=== PATIENT | female | born 1995 | race Caucasian/White ===

== ENCOUNTER 2022-04-25 09:56 | Emergency (ER) | payer BC, SELFPAY ==
[2022-04-25 09:57] VITALS: BP 130/77; PULSE 72; RESP 16; TEMP 36.6; O2SAT 99; BMI 34.3
--- NOTE | 2022-04-25 10:12 | CT_ITS ---
STUDY: CT BRAIN WITHOUT CONTRAST REASON FOR EXAM: Female, 26 years old. Trauma, head injury yesterday, quinteros, nausea RADIATION DOSAGE (If Supplied By Facility): CTDIvol = ( 44.99 ) mGy, DLP = ( 745.49 ) mGycm TECHNIQUE: Transaxial CT imaging of the brain was performed without administration of intravenous contrast material. Individualized dose optimization techniques were used for this CT. COMPARISON: No relevant priors. FINDINGS: Normal soft tissue structures. Normal calvarium. Normal size ventricles and extra-axial spaces for the patient''s age. Normal white matter tracts of the cerebral hemispheres. Normal basal ganglia and thalami. Normal brainstem. Normal cerebellum. There is no intracranial hemorrhage. There are no findings of an acute ischemic infarction. Normal visualized paranasal sinuses. CT/Brain/Head without Contrast IMPRESSION: Normal unenhanced CT scan of the brain. Electronically Signed: Alxe Valdes MD at 10:34 EDT ,
[2022-04-25] MEDS: Ondansetron ODT 4 MG Tablet 8 MG PO (10:15)
--- NOTE | 2022-04-25 10:15 | EDS_ITS ---
HPI History of Present Illness Chief Complaint: Head Injury Informant: patient Onset/Context/Timing Onset: Yesterday Mechanism/Context: Blunt Injury Quality of Pain: - (sore/achy) Location: top of head Current Severity: Mild Maximum Severity: Moderate Worsened by: palpation Relieved by: leaving alone Associated Symptoms Associated Symptoms: Negative for Parasthesias, Weakness, Loss of consciousness and Amnesia Narrative Narrative: Yesterday patient was at home and accidentally stood up into a cabinetry door, hitting the top of her head on it. No loss of conscious or a mnesia, just some pain locally when it happened without any wounds or bleeding. Last night she started feeling tired, then woke up this morning she has been feeling foggy, trouble focusing mentally, nausea, headache. No vomiting, vision changes, focal neurologic deficits, dizziness, confusion. She is concerned about the injury. PFSH PFSH Home Medications ondansetron 8 mg PO Q8H PRN PRN #12 tab 04/25/22 [Rx Last Taken Unknown] Allergy/AdvReac Type Severity Reaction Status Date / Time No Known Allergies Allergy Verified 04/25/22 09:59 Social History Smoking Status: Unknown if ever smoked ROS ROS ED Constitutional Constitutional ED: Reports as per HPI, headache(s) and malaise; Denies chills or fever(s) Eyes Eyes: Denies change in vision or diplopia ENT ENT ED: Denies rhinorrhea or sore throat Cardiovascular Cardiovascular: Denies chest pain or palpitations Respiratory/Chest Respiratory/Chest: Denies cough or dyspnea Gastrointestinal Gastrointestinal: Reports nausea; Denies abdominal pain, diarrhea or vomiting Genitourinary Genitourinary ED: Denies dysuria or hematuria Musculoskeletal Musculoskeletal: Denies back pain or neck pain Integumentary Denies abscess or rash Neurologic Neurologic: Reports as per HPI and headache(s); Denies paresthesias or weakness Psychiatric Psychiatric: Denies anxiety or suicidal thoughts EXAM Physical Exam Const Vital Signs: 04/25/22 09:57 04/25/22 10:06 Temperature 97.9 F Temperature Source Temporal Pulse Rate 72 Respiratory Rate 16 Respiratory Effort Normal Non-Labored Respiratory Pattern Normal Blood Pressure 130/77 H Blood Pressure Mean 94 Pulse Ox 99 Oxygen Delivery Method Room Air Positive well nourished and well developed General Appearance ED: well developed and NAD HEENT Reports EAC's normal, TM's normal bilaterally and moist mucous membranes HEENT Narrative: No signs of trauma on top of her head where she is mildly tender; no crepitance or depression normocephalic and atraumatic Eyes PERRL and EOMs intact bilaterally Neck full ROM and supple Resp normal respiratory effort and clear to auscultation bilaterally Cardio regular rate, regular rhythm and no murmurs GI non-tender and non-distended Auscultation: normoactive bowel sounds Palpation: soft Back/Spine no CVA tenderness General Back: other FROM Extremity normal to inspection General Extremety ED: Negative for edema, pulses abnormal or tenderness General Extremity: Negative for edema or pulses abnormal Neuro oriented x3, CN's II-XII intact bilaterally, no sensory deficits noted and gait normal Marcus Coma Scale: document GCS findings Spontaneous Obeys Commands Oriented 15 Sensorium / Orientation: awake and alert Motor Exam: strength 5/5 throughout Skin no rashes or lesions noted and no wounds MDM MDM MDM Narrative Medical decision making narrative: Patient meets Willard head CT trauma criteria for observation and does not require imaging to rule out intracranial hemorrhage. However, patient pleads that she does not come to the hospital often and knows her body and knows something is wrong and requests head CT anyway which was performed and negative for anything acute. Likely mild concussion, given the relatively low force injury, suspect symptoms were last couple days and self-resolved. Supportive care is advised, she was given Zofran here and a prescription for more in case she needs it, discussed following up if she has symptoms for longer than 1 week. Radiography Diagnostic Testing: Clinical Impression(s) from Imaging Studies Brain CT 04/25/22 10:12 IMPRESSION: Normal unenhanced CT scan of the brain. Electronically Signed: Alex Valdes MD at 10:34 EDT , Discharge Plan Triage Chief Complaint: Head Injury ED Provider: Jayro Christine Dx/Rx/DC Orders Clinical Impression: Concussion without loss of consciousness, initial encounter Instructions: ED Head Injury (Adult) Prescriptions: New ondansetron [ondansetron] 4 MG tablet 8 mg PO Q8H PRN PRN (Reason: Nausea) Qty: 12 RF: 0 Stand Alone Forms: ED Work / School Excuse Primary Care Provider: Care Physician,No Primary Referrals: Doctor,Your [STAFF PHYSICIAN] - 1 Week if not improving Activity Restrictions/Additional Instructions: Tylenol/ibuprofen as needed for headache/pain. Prescription nausea medication as needed. Disposition Disposition: Home, Self Care
[2022-04-25] MEDS: Ibuprofen 600 MG Tablet PO (11:17)
== END 2022-04-25 11:20 | disposition home or self-care (01) ==
PROVIDERS: Emergency Provider Emergency Medicine; Visit Provider Emergency Medicine
DX: S06.0X0A Concussion without loss of consciousness, initial encounter (principal); W22.09XA Striking against other stationary object, initial encounter; Y92.009 Unspecified place in unspecified non-institutional (private) residence as the place of occurrence of the external cause
CPT/HCPCS: 70450; 99283

== ENCOUNTER 2023-10-13 14:55 | Outpatient (CLI) | payer BC, SELFPAY ==
[2023-10-13 15:09] VITALS: BP 127/80; PULSE 127
[2023-10-13 15:10] VITALS: PULSE 106; PULSE 122; TEMP 36.9; O2SAT 95; O2SAT 96
[2023-10-13 15:14] VITALS: BMI 38.7
[2023-10-13 15:59] LABS: Color, Urine Yellow (Yellow); Glucose, Dipstick Normal (Normal); Ketone-Dipstick Negative (Negative); Leukocyte Esterase-Dipstick 25 /ul (Negative); Nitrite-Dipstick Negative (Negative); Occult Blood-Urine 250 /ul (Negative); Protein-Dipstick 15 mg/dl (Negative); Specific Gravity, Urine 1.015 (1.002-1.030); Urine Bilirubin Dipstick Negative (Negative); Urine Clarity Clear (Clear); Urine Urobilinogen Normal (Normal)
--- NOTE | 2023-10-14 09:47 | OB.TRI.NOTE ---
HPI - General General Date of Service: 10/13/23 HPI Narrative VIC STRATTON, is a 27 F @ 37 weeks who presents c/o cramping and bloody show , r/o labor PFSH PFS Home Medications aspirin 81 mg tablet,delayed release (Adult Aspirin Regimen) 81 mg PO DAILY 10/13/23 [History Last Taken 10/12/23] vits no.130-ferrous fum 27 mg iron-folic acid 800 mcg tablet ( Vitamin) 1 tab PO DAILY 10/13/23 [History Last Taken 10/13/23] Allergy/AdvReac Type Severity Reaction Status Date / Time bee venom protein (honey bee) Allergy Mild Swelling Verified 10/13/23 15:16 Social History Smoking Status: Unknown if ever smoked Physical Exam Narrative VE: 1cm per nursing NST FHR Rate Baby A Baseline: 155 Variability:: Moderate Accelerations:: 15 x 15 Decelerations:: None NST Reactive:: Yes FHR Category:: Category I Uterine Activity:: irregular Assessment & Plan (1) False labor: PLAN: Plan @ 37 weeks- false labor 1) well being established 2) dc home
== END 2023-10-13 16:30 | disposition home or self-care (01) ==
LOC: OBT 14:58 → WP 14:59
PROVIDERS: Visit Provider Obstetrics & Gynecology
DX: O47.1 False labor at or after 37 completed weeks of gestation (principal); Z3A.37 37 weeks gestation of pregnancy
CPT/HCPCS: 59025; 59050; 81002; 99221; G0378

== ENCOUNTER 2023-10-24 11:25 | Outpatient (CLI) | payer BC, SELFPAY ==
[2023-10-24 11:46] VITALS: BP 125/77; PULSE 108; TEMP 36.6; O2SAT 98
[2023-10-24 11:49] VITALS: PULSE 107; O2SAT 97
[2023-10-24 12:11] VITALS: BMI 38.9
[2023-10-24 12:22] LABS: Absolute Lymphocyte Count 1.78 X10^3/uL (0.83-4.51); Absolute Neutrophil Count 7.7 X10^3/uL (2.0-7.7); Basophil# 0.09 X10^3/uL; Basophil% 0.8 % (0-1); Eosinophil# 0.08 X10^3/uL; Eosinophils% 0.7 % (0-5); Hematocrit 35.2 % (37-47); Lymphocyte # 1.78 X10^3/ul (0.83-4.51); Lymphocyte % 16.2 % (19-41); Mean Corp Hgb Conc 31.3 g/dL (32-36); Mean Corpuscular Hgb 26.4 pg (27.0-32.0); Mean Corpuscular Volume 84.6 fL (81-99); Mean Platelet Vol. 11.2 fl (6.2-12.0); Monocyte% 8.2 % (0-10); NRBC Flagged by Analyzer 0 % (0-5); Neutrophil # 7.66 X10^3/uL (2.7-7.7); Neutrophil % 69.6 % (47-70); Platelet Count 220 K/mm3 (150-450); RBC Distribution Width CV 13.7 % (11.6-14.6); RBC Distribution Width SD 42.1 fl (35.1-43.9); Red Blood Count 4.16 M/mm3 (4.2-5.4)
[2023-10-24 12:34] LABS: ALB/GLOB Ratio 0.6 RATIO (0.9-2.4); AST(SGOT) 12 U/L (15-37); Alanine Aminotransfer ALT/SGPT 11 U/L (13-56); Albumin, Serum 2.5 g/dL (3.2-5.0); Alkaline Phosphatase 127 U/L (45-117); Anion Gap 4 (5-15); BUN 5 mg/dL (7-18); BUN/Creat Ratio 10.2 RATIO (10-20); Calcium,Total 8.6 mg/dL (8.5-10.1); Chloride 108 mmol/L (98-107); Creatinine, Serum 0.49 mg/dL (0.55-1.02); EST Glomerular Filtration Rate 158 mL/min (>60); Est Glom Filt Rate - Afr Amer 191 mL/min (>60); Estimated Creatinine Clearance 146.29 ml/min; Globulin 4.3 g/dL (2.2-4.2); Glucose 119 mg/dL (74-106); Potassium 3.7 mmol/L (3.5-5.1); Protein, Total 6.8 g/dL (6.4-8.2); Sodium Level 136 mmol/L (136-145)
--- NOTE | 2023-10-24 12:52 | OB.TRI.NOTE ---
HPI - General HPI Narrative VIC STRATTON, is a 27 F who presents from office for tachycardia while on NST. Patient also reporting itching skin on backs of hands. No rash noted. Maternal Data Information HAYLEY Calculator Estimated Delivery Date Method Current WG Current Estimate 11/03/23 Manual 38w 4d PFSH PFSH Home Medications aspirin 81 mg tablet,delayed release (Adult Aspirin Regimen) 81 mg PO DAILY 10/13/23 [History Last Taken 10/21/23] vits no.130-ferrous fum 27 mg iron-folic acid 800 mcg tablet ( Vitamin) 1 tab PO DAILY 10/13/23 [History Last Taken 10/21/23] Allergy/AdvReac Type Severity Reaction Status Date / Time bee venom protein (honey bee) Allergy Mild Swelling Verified 10/24/23 12:10 Social History Smoking Status: Unknown if ever smoked ROS Eyes Eyes: Denies blurry vision Cardiovascular Cardiovascular: Reports none; Denies chest pain at rest, chest pain with activity or dizziness Respiratory/Chest Respiratory/Chest: Denies cough or dyspnea Gastrointestinal Gastrointestinal: Reports none and other; Denies diarrhea or vomiting Genitourinary Genitourinary: Denies dysuria Musculoskeletal Musculoskeletal: Reports none Integumentary Integumentary: Reports none; Denies rash Neurologic Neurologic: Denies dizziness, headache(s) or other visual disturbances Psychiatric Psychiatric: Reports none Physical Exam Const alert and no apparent distress General Appearance: cooperative Orientation / Consciousness: awake Exam Limitations: no limitations HEENT normocephalic Eyes General Eye: normal appearance of both eyes Neck full ROM Chest inspection of chest normal Resp normal respiratory effort and normal air movement Effort and Inspection: symmetric chest movement Auscultation: clear to auscultation bilaterally Cardio regular rate GI soft to palpation, non-tender and non-distended Inspection: and other Back/Spine normal ROM Extremity full ROM, normal capillary refill and no calf tenderness Skin no rashes or lesions noted Neuro oriented x3 and CN's II-XII intact bilaterally Psych mental status grossly normal NST FHR Rate Baby A Baseline: 140 Variability:: Moderate Accelerations:: 15 x 15 Decelerations:: None NST Reactive:: Yes FHR Category:: Category I Uterine Activity:: Irregular contractions Assessment & Plan (1) 38 weeks gestation of : (2) Antepartum tachycardia affecting care of mother: (3) Pruritus of both hands: PLAN: Plan CBC & CMP normal Bile salts sent- do not suspect cholestasis due to itching on back of hands and has dry skin FHT no longer tachycardic NST reactive, Cat. 1 tracing D/C home with follow up in office
[2023-10-26 04:07] LABS: Bile Acids 3.3 umol/L (0.0-10.0)
== END 2023-10-24 13:15 | disposition home or self-care (01) ==
LOC: WPOUT 11:32 → WP 11:32
PROVIDERS: Referring Provider Advanced Practice Midwife; Visit Provider Advanced Practice Midwife
DX: O36.8330 Maternal care for abnormalities of the fetal heart rate or rhythm, third trimester, not applicable or unspecified (principal); Z3A.38 38 weeks gestation of pregnancy
CPT/HCPCS: 36415; 59025; 59050; 80053; 82239; 85025; 99221; G0378

== ENCOUNTER 2023-10-30 07:05 | Inpatient (IN) | payer BC, SELFPAY ==
[2023-10-30] VITALS (69 sets, daily range): BP systolic 95–161; BP diastolic 55–86; PULSE 74–113; RESP 15; TEMP 35.8–37.2; O2SAT 89–100; BMI 39.3
[2023-10-30] MEDS: Lactated Ringers 1,000 ML 50 ML IV (07:45)
[2023-10-30] MEDS: Oxytocin 15 Units/NS 250ml 15 UNITS/250 ML IV.SOLN 2 UNITS IV (07:59)
[2023-10-30] MEDS: LACTATED RINGERS 500 ML 999 ML IV (08:44)
--- NOTE | 2023-10-30 08:52 | HP.PCM.OB_ITS ---
HPI - General General Date of Admission: 10/30/23 HPI Narrative VIC STRATTON, is a 27 F who presents for elective induction of labor. with HAYLEY 11/03/23 with complicated by obesity, prepregnancy BMI 35. Maternal Data Information HAYLEY Calculator Estimated Delivery Date Method Current WG Current Estimate 11/03/23 Manual 39w 3d PFSH PFSH Medical History (Updated 10/30/23 @ 08:57 by Lucinda Delgadillo CNM) History of blood transfusion Home Medications aspirin 81 mg tablet,delayed release (Adult Aspirin Regimen) 81 mg PO DAILY 10/13/23 [History Last Taken 10/21/23] vits no.130-ferrous fum 27 mg iron-folic acid 800 mcg tablet ( Vitamin) 1 tab PO DAILY 10/13/23 [History Last Taken 10/21/23] Allergy/AdvReac Type Severity Reaction Status Date / Time bee venom protein (honey bee) Allergy Mild Swelling Verified 10/30/23 07:35 Surgical History (Updated 10/30/23 @ 08:21 by Mars Angeles) History of surgery History of surgery Social History Smoking Status: Never smoker History Elective abortions Hx Para 1 Spontaneous abortions Hx # Term Pregnancies Ectopic pregnancies Hx # Pregnancies Multiple births # of living children ROS Constitutional Constitutional: Reports systems reviewed and no addt'l complaints, except as documented; Denies headache(s) Eyes Eyes: Denies acute decrease in peripheral vision, blurry vision or change in vision ENT HEENT: Reports systems reviewed and no addt'l complaints, except as documented Cardiovascular Cardiovascular: Denies chest pain or dizziness Respiratory/Chest Respiratory/Chest: Denies cough, dyspnea, dyspnea on exertion, shortness of breath at rest or shortness of breath with exertion Gastrointestinal Gastrointestinal: Denies abdominal pain, diarrhea, nausea or vomiting Genitourinary Genitourinary: Denies abdominal discomfort Musculoskeletal Musculoskeletal: Denies limited range of motion Integumentary Integumentary: Reports systems reviewed and no addt'l complaints, except as documented Neurologic Neurologic: Reports systems reviewed and no addt'l complaints, except as documented Psychiatric Psychiatric: Reports systems reviewed and no addt'l complaints, except as documented Endocrine Endocrinology: Reports systems reviewed and no addt'l complaints, except as documented Hematologic/Lymphatic Hematologic/Lymphatic: Reports systems reviewed and no addt'l complaints, except as documented Allergic/Immunologic Allergic/Immunologic: Reports systems reviewed and no addt'l complaints, except as documented Vital Signs Vital Signs Vital Signs: 10/30/23 07:28 10/30/23 07:28 10/30/23 07:29 Temperature 97.9 F Pulse Rate 113 H Blood Pressure 125/79 H BP Systolic 125 BP Diastolic 79 10/30/23 08:41 10/30/23 08:41 10/30/23 08:42 Temperature 98.1 F Pulse Rate 96 Blood Pressure 135/86 H BP Systolic 135 BP Diastolic 86 Weight Weight: 229 lb 0.964 oz Body Mass Index (BMI) 39.3 Physical Exam Const alert and oriented x3 General Appearance: cooperative Orientation / Consciousness: awake, oriented to person, oriented to place and oriented to time Exam Limitations: no limitations HEENT normocephalic Head and Scalp: normal to inspection, normocephalic and atraumatic Face and Sinus: normal facial exam Eyes General Eye: normal appearance of both eyes Neck full ROM Chest Chest: symmetrical chest wall rise Resp normal respiratory effort and normal air movement Auscultation: clear to auscultation bilaterally Cardio regular rate, regular rhythm, S1 normal heart sound, S2 normal heart sound, no murmurs, no rub, no gallops and no clicks GI normal to inspection, nondistended, normoactive bowel sounds and non-tender appearance of the vagina normal Narrative: AROM for moderate amount of clear fluid Bladder / Kidney Exam: no CVA tenderness Manual OB Exam: estimated gestational size appropriate, presentation cephalic, dilated 4cm, effaced 50% and station -1 Back/Spine normal ROM Extremity normal to inspection and full ROM Skin no rashes or lesions noted Neuro oriented x3, CN's II-XII intact bilaterally and moves all extremities Sensorium / Orientation: awake, alert and oriented to person Motor Exam: clonus absent Deep Tendon Reflexes: Rt Patellar (L4): 2+ and Lt Patellar (L4): 2+ Labs Labs Labs: Hct 35.2 % (37-47) L Hgb 11.0 g/dL (12.0-15.0) L HIV negative RPR negative HBsAG negative HepC negative GBS negative GC/CT negative 1hr GCT abnormal, 3hr GCT with one elevted level Rubella Immune O positive Assessment & Plan (1) 39 weeks gestation of : (2) Encounter for elective induction of labor: (3) Obesity affecting : PLAN: Plan 1) Admit to labor and delivery 2) Continuous EFM 3) GBS negative 4) Routine labs 5) Epidural for pain management upon request 6) AROM and pitocin for IOL 7) [facility] physician, notified of patient status and of above assessment and plan.
[2023-10-30 09:15] LABS: Absolute Lymphocyte Count 1.79 X10^3/uL (0.83-4.51); Absolute Neutrophil Count 7.9 X10^3/uL (2.0-7.7); Basophil# 0.11 X10^3/uL; Eosinophil# 0.09 X10^3/uL; Eosinophils% 0.8 % (0-5); Hematocrit 34.7 % (37-47); Hemoglobin 10.8 g/dL (12.0-15.0); Lymphocyte # 1.79 X10^3/ul (0.83-4.51); Lymphocyte % 16.2 % (19-41); Mean Corp Hgb Conc 31.1 g/dL (32-36); Mean Corpuscular Hgb 26.3 pg (27.0-32.0); Mean Corpuscular Volume 84.4 fL (81-99); Mean Platelet Vol. 11.3 fl (6.2-12.0); Monocyte# 0.75 X10^3/uL; Monocyte% 6.8 % (0-10); NRBC Flagged by Analyzer 0 % (0-5); Neutrophil # 7.89 X10^3/uL (2.7-7.7); Neutrophil % 71.4 % (47-70); Platelet Count 230 K/mm3 (150-450); RBC Distribution Width CV 13.7 % (11.6-14.6); Red Blood Count 4.11 M/mm3 (4.2-5.4); White Blood Count 11.1 K/mm3 (4.4-11.0)
[2023-10-30 09:52] LABS: Syphilis Antibodies Non-reactive
[2023-10-30] MEDS: fentaNYL-bupivacaine (epidural) 100 ML BAG EPIDURAL (10:06)
[2023-10-30] MEDS: Lactated Ringers 1,000 ML 200 ML IV (12:18)
[2023-10-30] MEDS: Oxytocin 15 Units/NS 250ml 15 UNITS/250 ML IV.SOLN 83 UNITS IV (16:00)
--- NOTE | 2023-10-30 16:26 | EX.PCM.OBRPT ---
Assessment & Plan (1) Vaginal delivery: (2) Second degree perineal laceration: (3) Lactating mother: Maternal Data Information HAYLEY Calculator Estimated Delivery Date Method Current WG Current Estimate 11/03/23 Manual 39w 3d Vaginal Delivery Operative Information Date of Procedure: 10/30/23 Pre-Operative Diagnosis: Elective Induction of Labor Post-Operative Diagnosis: , second degree perineal laceration Surgery / Procedure Performed: Spontaneous Vaginal Delivery Type of Anesthesia: Epidural Estimated Blood Loss: 350 ml Time of Delivery: 15:27 Findings Description of Procedure: Progressed to complete with urge to push. Epidural for pain management. of viable male over second degree perineal laceration. APGARS 8,9 respectively. head delivered with CAN x1, delivered through, body immediately forthcoming. Placed on maternal abdomen, strong cry. Mouth and nares suctioned for secretions. Pitocin started for active 3rd stage management. Cord doubly clamped and cut by FOB after pulsations ceased, delayed cord clamping. Placenta delivered intact via [place], 3 vessel cord intact. Perineum inspected and revealed 2nd degree perineal laceration. Repaired with 3.0 vicryl rapide and epidural. Fundus firm and hemostasis achieved. EBL 350ml . Mom and baby stable, planning to breastfeed. Family bonding well. notified of delivery and above assessment and findings. Presentation: Vertex Amniotic Membrane Rupture Type: Artificial Amniotic Fluid Description: Clear Placental Delivery Description: Spontaneous Placenta Disposition: [facility] Cord Vessel Description: 3 Vessels Cord Entanglement: Around neck x 1, loose Nuchal Cord Compression: Without compression Infant A Gender: Male (1 minute): 8 (5 minute): 9 Delayed Cord Clamping: Yes Post Vaginal Delivery Medications Given After Delivery: IV Pitocin Episiotomy Description: None Laceration: Perineal Extension/lac and 2nd degree Complication Complications: None
[2023-10-31 03:20] VITALS: BP 110/70; PULSE 96; RESP 15; TEMP 36.6; O2SAT 96
[2023-10-31] MEDS: Acetaminophen 500 MG Tablet 1000 MG PO (06:33)
[2023-10-31 06:40] LABS: Absolute Lymphocyte Count 1.97 X10^3/uL (0.83-4.51); Absolute Neutrophil Count 10.3 X10^3/uL (2.0-7.7); Basophil# 0.11 X10^3/uL; Basophil% 0.8 % (0-1); Eosinophil# 0.09 X10^3/uL; Eosinophils% 0.6 % (0-5); Hematocrit 35.1 % (37-47); Hemoglobin 10.9 g/dL (12.0-15.0); Lymphocyte # 1.97 X10^3/ul (0.83-4.51); Lymphocyte % 14.2 % (19-41); Mean Corp Hgb Conc 31.1 g/dL (32-36); Mean Corpuscular Hgb 26.3 pg (27.0-32.0); Mean Corpuscular Volume 84.6 fL (81-99); Mean Platelet Vol. 11.6 fl (6.2-12.0); Monocyte# 1.01 X10^3/uL; Monocyte% 7.3 % (0-10); NRBC Flagged by Analyzer 0 % (0-5); Neutrophil # 10.29 X10^3/uL (2.7-7.7); Platelet Count 202 K/mm3 (150-450); RBC Distribution Width CV 13.6 % (11.6-14.6); RBC Distribution Width SD 42.2 fl (35.1-43.9); Red Blood Count 4.15 M/mm3 (4.2-5.4); White Blood Count 13.9 K/mm3 (4.4-11.0)
[2023-10-31 07:46] VITALS: BP 112/73; PULSE 83; RESP 18; TEMP 36.4; O2SAT 95
--- NOTE | 2023-10-31 08:11 | PCM.DC.SUM ---
Providers Date of Admission: 10/30/23 Primary Care Physician: Louann Primary Care Phys Reason For Visit: VAGINAL Diagnosis Discharge Diagnosis (1) Vaginal delivery: Status: Acute Code(s): O80 - Encounter for full-term uncomplicated delivery (2) Second degree perineal laceration: Status: Acute Code(s): O70.1 - Second degree perineal laceration during delivery (3) Lactating mother: Status: Acute Code(s): Z39.1 - Encounter for care and examination of lactating mother Medications at Discharge Home Medications vits no.130-ferrous fum 27 mg iron-folic acid 800 mcg tablet ( Vitamin) 1 tab PO DAILY 10/13/23 acetaminophen 500 mg tablet 1,000 mg (2 x 500 mg) PO Q6H PRN PRN Pain 1-10 Or Fever #0 tabs 10/31/23 ibuprofen 600 mg tablet 600 mg PO Q6H PRN PRN Pain Score 1-3 #0 tabs 10/31/23 Hospital Course Operations None Procedures None Summary of Care Provided Minutes Spent on Discharge: 15 Hospital Course: Patient had . Hospital course was uneventful. Physical Exam Const alert and no apparent distress General Appearance: cooperative and comfortable Exam Limitations: no limitations HEENT normocephalic Eyes General Eye: normal appearance of both eyes Neck full ROM General: normal visual inspection Chest Chest: symmetrical chest wall rise Resp normal respiratory effort and normal air movement Effort and Inspection: symmetric chest movement Auscultation: clear to auscultation bilaterally Cardio regular rate and regular rhythm GI normal to inspection, nondistended, normoactive bowel sounds Back/Spine normal ROM Extremity full ROM and no calf tenderness General Extremity: normal exam except as noted Skin no rashes or lesions noted Neuro CN's II-XII intact bilaterally Psych mental status grossly normal Weight / BMI Weight Weight: 229 lb 0.964 oz Body Mass Index (BMI) 39.3 ABG / Lab / Microbiology Data 10/31/23 06:25 Laboratory: Laboratory Results - last 24 hr 10/30/23 07:45: WBC 11.1 H, RBC 4.11 L, Hgb 10.8 L, Hct 34.7 L, MCV 84.4, MCH 26.3 L, MCHC 31.1 L, RDW Std Deviation 42.0, RDW Coeff of David 13.7, Plt Count 230, MPV 11.3, Immature Gran % (Auto) 3.800 H, Neut % (Auto) 71.4 H, Lymph % (Auto) 16.2 L, [place] % (Auto) 6.8, Eos % (Auto) 0.8, Baso % (Auto) 1.0, Absolute Neuts (auto) 7.9 H, Absolute Lymphs (auto) 1.79, Nucleated RBC % 0, Syphilis Total Ab Non-reactive, Blood Type O POSITIVE, Antibody Screen NEGATIVE 10/31/23 06:25: WBC 13.9 H, RBC 4.15 L, Hgb 10.9 L, Hct 35.1 L, MCV 84.6, MCH 26.3 L, MCHC 31.1 L, RDW Std Deviation 42.2, RDW Coeff of David 13.6, Plt Count 202, MPV 11.6, Immature Gran % (Auto) 3.100 H, Neut % (Auto) 74.0 H, Lymph % (Auto) 14.2 L, [place] % (Auto) 7.3, Eos % (Auto) 0.6, Baso % (Auto) 0.8, Absolute Neuts (auto) 10.3 H, Absolute Lymphs (auto) 1.97, Nucleated RBC % 0 D/C Instructions Discharge Diet: No restrictions May resume sexual activity in: 6-8 weeks Weight Bearing Status: Weight bearing as tolerated Call your doctor if you observe: Fever of 101 or Higher, Inability to urinate, Using more than 1 pad per hour, Shortness of breath, Chest pain, Calf discomfort and Uncontrolled pain Please Follow Up With: Sariah Tristan CNM When: 2 weeks virtual visit/ 6 weeks in office Meaningful Use Info Meaningful Use Diagnoses (Choose all that apply): None applicable Discharge Plan Admission Admit Date/Time: 10/30/23 07:05 Primary Reason for Your Visit: Labor and Delivery Attending Provider: Rowan Hall Primary Care Provider: Care Physician,Louann Primary Discharge Orders/Prescriptions Prescriptions: New acetaminophen 500 mg Tablet 1,000 mg PO Q6H PRN PRN (Reason: Pain 1-10 Or Fever) Qty: 0 0RF ibuprofen 600 mg Tablet 600 mg PO Q6H PRN PRN (Reason: Pain Score 1-3) Qty: 0 0RF Continued Vitamin 27 mg iron- 800 mcg tablet 1 tab PO DAILY Discontinued aspirin [Adult Aspirin Regimen] 81 mg tablet,delayed release (DR/EC) 81 mg PO DAILY Referrals / Follow Up: Care Physician,No Primary [Primary Care Provider] - Disposition Disposition (needs filled in before D/C Order can be placed): Home, Self Care
[2023-10-31] MEDS: Ibuprofen 600 MG Tablet PO (08:42)
[2023-10-31] MEDS: SimETHICONE 80 MG Chewable Tablet PO (08:42)
[2023-10-31] MEDS: Senna/Docusate Sodium 1 Tablet PO (08:43)
[2023-10-31 17:26] VITALS: BP 119/75; PULSE 76; RESP 18; TEMP 36.4
== END 2023-10-31 18:00 | disposition home or self-care (01) | DRG 807 ==
PROVIDERS: Advanced Practice Midwife; Admitting Provider Obstetrics & Gynecology; Referring Provider Obstetrics & Gynecology; Visit Provider Obstetrics & Gynecology
DX: O69.81X0 Labor and delivery complicated by cord around neck, without compression, not applicable or unspecified (principal); Z37.0 Single live birth; O70.1 Second degree perineal laceration during delivery; O99.214 Obesity complicating childbirth; Z3A.39 39 weeks gestation of pregnancy
CPT/HCPCS: 59025; 59050; 85025; 86780; 86850; 86900; 86901; 99221; J7120; G0378